=== PATIENT | male | born 1990 | race Hispanic/Latino ===

== ENCOUNTER → 2019-09-15 | Outpatient (CLI) | payer OTHER ==
--- NOTE | 2019-09-15 18:22 | DIREP ---
PROCEDURE:XRAY NASAL BONES MIN 3 VWS COMPARISON:None. INDICATIONS:CONTUSION OF NOSE FINDINGS: BONES:Minimally depressed fracture of the tip of the nasal bone. JOINTS:Normal. SOFT TISSUES:Normal. OTHER:No additional findings. CONCLUSION:Minimally depressed fracture of the tip of the nasal bone. Dictated by: Lela Asif M.D. on 09/15/2019 at 06:20 PM
== END | disposition home or self-care (01) ==
LOC: RAD 17:46
PROVIDERS: ATTEND Nurse Practitioner Adult Health
DX: S02.2XXA Fracture of nasal bones, initial encounter for closed fracture (principal); X58.XXXA Exposure to other specified factors, initial encounter; Y93.89 Activity, other specified; Y92.89 Other specified places as the place of occurrence of the external cause; Y99.8 Other external cause status
CPT/HCPCS: 70160